=== PATIENT | male | born 1985 | race Two or more races ===

== ENCOUNTER 2021-10-17 11:23 | Emergency (ER) | payer OTHER ==
[~2021-10-17] VITALS: Ht 175.3 cm; Wt 99.8 kg
--- NOTE | 2021-10-17 11:34 | NUR ---
pt ambulatory to er bed 19 c/o l sided facial swelling that started 2 days ago. denies any pain, states "swelling" started 2 days ago s/p tooth broke. pt is also c/o L foot discomfort for months after taking out his cast and pulling a metal object sticking out. no noted swelling to affected foot. stable vitals. nad noted. awaiting md fishman.
[2021-10-17] MEDS ORDERED: VALA100026 PO (12:10)
[2021-10-17] MEDS ORDERED: PRED20TA PO (12:10)
[2021-10-17 12:19] VITALS: BP 146/70
--- NOTE | 2021-10-17 12:19 | NUR ---
pt provided w a cane. Patient discharged to home in stable condition. Written and verbal after care instructions given. Patient verbalizes understanding of instruction.
== END 2021-10-17 12:19 | disposition home or self-care (01) ==
LOC: ER 11:26
DX: G51.0 Bell's palsy (principal); K00.7 Teething syndrome

== ENCOUNTER 2021-12-12 01:56 | Emergency (ER) | payer OTHER ==
[~2021-12-12 01:56] MED LIST: PRED20TA PO; VALA100026 PO
--- NOTE | 2021-12-12 02:03 | NUR ---
PATIENT LEFT BEFORE TRIAGE ASSESSMENT
== END 2021-12-12 02:03 | disposition left against medical advice (07) ==
LOC: ER 01:57
DX: Z53.21 Procedure and treatment not carried out due to patient leaving prior to being seen by health care provider (principal)